=== PATIENT | male | born 1980 | race Caucasian/White ===

== ENCOUNTER 2017-07-12 06:16 | Outpatient (CLI) | payer SELFPAY | END 2017-07-12 06:17 | disposition home or self-care (01) | LOC: EMS 06:16 → EDBD 06:16 → EMS 06:17 | PROVIDERS: ATTEND Surgery | DX: V49.40XA Driver injured in collision with unspecified motor vehicles in traffic accident, initial encounter; Y92.410 Unspecified street and highway as the place of occurrence of the external cause ==